=== PATIENT | female | born 1970 | race Caucasian/White ===

== ENCOUNTER 2017-05-28 05:45 | Day surgery (SDC) | payer OTHER ==
[~2017-05-28] VITALS: Ht 170.2 cm; Wt 106.1 kg
[2017-05-28] MEDS ORDERED: BUPIVACAINE /PF 0.5% 30 ML VIAL INJ ONE (07:30)
[2017-05-28] MEDS ORDERED: ROCURONIUM BROMIDE 10 MG/ML (ZEMURON) IV ONE (07:30)
[2017-05-28] MEDS ORDERED: PROPOFOL 200MG/ 20ML VIAL (DIPRIVAN) IV ONE (07:30)
[2017-05-28] MEDS ORDERED: LR 1,000 ML IV.SOLN IV ONE (07:30)
[2017-05-28] MEDS ORDERED: NS IRRIG SOLN 1000 ML IR ONE (07:30)
[2017-05-28] MEDS ORDERED: fentaNYL CITRATE 250 MCG/5 ML AMP IV ONE (07:30)
[2017-05-28] MEDS ORDERED: fentaNYL CITRATE/PF 100 MCG/2 ML AMP IVP ONE (07:30)
[2017-05-28] MEDS ORDERED: CEFAZOLIN 2 GM IVPB PREMIX 50 ML IV ONE (07:30)
[2017-05-28] MEDS ORDERED: SEVOFLURANE 15 MIN GAS INH ONE (07:30)
[2017-05-28] MEDS ORDERED: KETOROLAC TROMETHAMINE 30 MG VIAL IVP ONE (07:30)
[2017-05-28] MEDS ORDERED: MIDAZOLAM HCL 5 MG/5 ML VIAL IVP ONE (07:30)
[2017-05-28] MEDS ORDERED: ONDANSETRON HCL 4 MG/2 ML VIAL IVP ONE (07:30)
[2017-05-28] MEDS ORDERED: NS 1000 ML BAG IV ONE (07:30)
[2017-05-28] MEDS ORDERED: LR 1,000 ML IV SCH (09:11)
[2017-05-28] MEDS ORDERED: HYDROmorphone 2 MG/ML VIAL IVP PRN (09:15)
[2017-05-28] MEDS ORDERED: HYDROmorphone 1 MG INJ. 1 MG/ML AMPUL IVP PRN (09:15)
[2017-05-28] MEDS ORDERED: METOCLOPRAMIDE HCL 10 MG/2 ML VIAL IVP PRN (09:15)
[2017-05-28] MEDS ORDERED: ONDANSETRON HCL 4 MG/2 ML VIAL IVP PRN (10:00)
[2017-05-28] MEDS ORDERED: PROMETHAZINE HCL 25 MG/ML AMP IM PRN (10:00)
[2017-05-28] MEDS: HYDROmorphone 1 MG INJ. 1 MG/ML AMPUL IVP PRN ×2 (10:10→10:15)
[2017-05-28] MEDS ORDERED: HYDROmorphone 2 MG/ML VIAL ONE (10:19)
[2017-05-28 11:16] VITALS: BP_SYST 130
[2017-05-28] MEDS ORDERED: ONDANSETRON HCL 4 MG/2 ML VIAL ONE (12:06)
[2017-05-28] MEDS ORDERED: OXYCODONE/ACETAMINOPHEN 5-325 TABLET PO PRN (12:30)
[2017-05-28] MEDS ORDERED: HYDROmorphone 2 MG TAB PO PRN (12:30)
== END 2017-05-28 14:00 | disposition home or self-care (01) ==
LOC: SDS 05:45 → SMU 05:45 → SDS 14:00
PROVIDERS: ATTEND Obstetrics & Gynecology
DX: D25.1 Intramural leiomyoma of uterus (principal); D25.2 Subserosal leiomyoma of uterus; Z98.890 Other specified postprocedural states; Z90.49 Acquired absence of other specified parts of digestive tract; E66.01 Morbid (severe) obesity due to excess calories; Z87.891 Personal history of nicotine dependence; K21.0 Gastro-esophageal reflux disease with esophagitis; E55.9 Vitamin D deficiency, unspecified; Z68.34 Body mass index [BMI] 34.0-34.9, adult
CPT/HCPCS: 36415; 57000; 58571; 86886; 86900; 86901; 88307; C1727; J0690; J1170; J1885; J2250; J2405; J2704; J3010 ×2; J3490; J7030; J7120; E0190